=== PATIENT | female | born 1980 | race Caucasian/White ===

== ENCOUNTER 2017-02-09 10:19 | Emergency (ER) | payer MEDICAID ==
[~2017-02-09] VITALS: Ht 152.4 cm; Wt 66.0 kg
[2017-02-09 10:21] VITALS: Ht 152.4 cm; Wt 66.0 kg
[2017-02-09] MEDS ORDERED: ACETAMINOPHEN 500 MG TAB PO STA (10:59)
[2017-02-09] MEDS ORDERED: KETOROLAC 30 MG INJ IV STA (10:59)
--- NOTE | 2017-02-09 11:21 | ERD ---
ER Documentation Chief Complaint Date/Time DATE: 02/09/17 TIME: 11:18 Chief Complaint LEFT BREAST SINCE YESTERDAY HPI This a 36-year-old female who presents to the emergency department today complaining of left breast pain and swelling that started yesterday. States that she started with a fever last night and also has some chills and a headache. States she is breast-feeding and is starting to decrease the amount she is breast-feeding and is only breast-feeding 1 or 2 times a day. States she took some medicine last night for her fever but she is unsure of the name. denies any vomiting, diarrhea, blurred vision. ROS All systems reviewed and are negative except as per history of present illness. Medications Home Meds Active Scripts Ibuprofen* (Motrin*) 600 Mg Tab, 600 MG PO Q6, #30 TAB Prov:YRN VINCENT PA-C 02/09/17 Acetaminophen* (Tylophen*) 500 Mg Capsule, 1 CAP PO Q6H Y for PAIN AND OR ELEVATED TEMP, #30 CAP Prov:YRN VINCENT PA-C 02/09/17 Cephalexin* (Keflex*) 500 Mg Capsule, 500 MG PO QID for 7 Days, CAP Prov:YRN VINCENTC 02/09/17 Hydrocodone/Acetaminophen ([place] 5-325 Tablet) 1 Each Tablet, 1 TAB PO Q6H Y for PAIN, #10 TAB Prov:YRN VINCENTC 02/09/17 Allergies Allergies: Coded Allergies: No Known Drug Allergy (Verified Allergy, Unknown, 02/22/07) Physical Exam Vitals Vital Signs Date Time Temp Pulse Resp B/P Pulse Ox O2 Delivery O2 Flow Rate FiO2 02/09/17 10:21 101.4 122 18 104/60 98 Physical Exam Const: No acute distress Head: Atraumatic Eyes: Normal Conjunctiva. PERRLA. EOM intact per ENT: Normal External Ears, Nose and Mouth. Neck: Full range of motion..~ No meningismus. Resp: Clear to auscultation bilaterally Cardio: Regular rate and rhythm, no murmurs : Left breast tenderness with no purulent drainage. Diffusely tender to palpation no erythema or warmth. Skin: No petechiae or rashes Back: No midline or flank tenderness Ext: No cyanosis, or edema Neur: Awake and alert. Cranial nerves II through XII intact. No gait ataxia. Psych: Normal Mood and Affect Results 24 hrs Current Medications Medications (Trade) Dose Ordered Sig/Shalini Route PRN Reason Start Time Stop Time Status Last Admin Dose Admin Ketorolac Tromethamine (Toradol) 30 mg ONCE STAT IV 02/09/17 10:59 02/09/17 11:02 DC 02/09/17 11:18 Acetaminophen (Tylenol Tab) 500 mg ONCE STAT PO 02/09/17 10:59 02/09/17 11:02 DC 02/09/17 11:18 Cephalexin (Keflex) 500 mg ONCE ONCE PO 02/09/17 13:30 02/09/17 13:31 DC 02/09/17 13:36 DIAGNOSTIC IMAGING REPORT Patient: DENIA HAMILTON : 1980 Age: 36 Sex: F MR #: [id number] DOS: 02/09/17 0000 Ordering MD: YRN VINCENT PA-C Location: [facility] Room/Bed: PROCEDURE: Left breast ultrasound. CLINICAL INDICATION: Left breast pain and tenderness, fibrocystic disease of breast TECHNIQUE: Left whole, four-quadrant, and retroareolar, breast and axillary sonography was performed. COMPARISON: None FINDINGS: No solid or suspicious masses. No areas of architectural distortion. No malignant adenopathy. IMPRESSION: No sonographic evidence of malignancy. ACR BIRADS 1: NEGATIVE. RPTAT: AA .Reema Sanchez MD, MD Date Time Electronically viewed and signed by .Reema Sanchez MD, MD on 02/09/2017 12:02 .F/ CC: YRN VINCENT PA-C Procedures/MDM This 36-year-old female who presents emergency department today complaining of breast pain and swelling and headache and fever started yesterday. I did obtain a breast ultrasound Patient had a fever of 101.4 here in the emergency department. She is tachycardic. Breast ultrasound shows no solid or suspicious masses. There is no areas of architectural distortion. No malignant adenopathy. There is no sonographic evidence of malignancy. Patient symptoms at this time is consistent with breast pain and fever likely related to mastitis as patient is currently breast-feeding. The remaining of her physical exam is otherwise benign. Patient has no focal neurologic deficits. She has full active range of motion of her neck. Low suspicion for meningitis, acute hemorrhage, mass, abscess. Do not feel that she requires further workup or imaging at this time. Patient was given IV fluids, Tylenol and Toradol here in the emergency department and reported feeling better. Fever improved. Patient was also given 1 dose of Keflex here in the emergency department. She is given a prescription for Tylenol, Motrin, [place] and Keflex for home. Discussed the patient with Dr. Ontiveros and he is in agreement with the plan Departure Diagnosis: Primary Impression: Breast pain Additional Impression: Fever Fever type: unspecified Qualified Code: R50.9 - Fever, unspecified fever cause Condition: Fair YRN VINCENT PA-C Feb 09, 2017 11:20
--- NOTE | 2017-02-09 12:02 | RADRPT ---
PROCEDURE: Left breast ultrasound. CLINICAL INDICATION: Left breast pain and tenderness, fibrocystic disease of breast TECHNIQUE: Left whole, four-quadrant, and retroareolar, breast and axillary sonography was perform ed. COMPARISON: None FINDINGS: No solid or suspicious masses. No areas of architectural distortion. No malignant adenopathy. IMPRESSION: No sonographic evidence of malignancy. ACR BIRADS 1: NEGATIVE. RPTAT: AA .Reema Sanchez MD, MD Date Time Electronically viewed and signed by .Reema Sanchez MD, MD on 02/09/2017 12:02 .F/
[2017-02-09] MEDS ORDERED: HYDR-906 PO (13:28)
[2017-02-09] MEDS ORDERED: CEPH-443 PO (13:29)
[2017-02-09] MEDS ORDERED: IBUP-1542 PO (13:29)
[2017-02-09] MEDS ORDERED: ACET500C5 PO (13:29)
[2017-02-09] MEDS ORDERED: CEPHALEXIN 500 MG CAP PO ONE (13:30)
[2017-02-09 13:45] VITALS: BP 105/57; PULSE 101; RESP 18; TEMP 98.4
== END 2017-02-09 13:45 | disposition home or self-care (01) ==
LOC: FTE 10:19
DX: N64.4 Mastodynia (principal); R50.9 Fever, unspecified
CPT/HCPCS: 76642; J1885; Z7610; 96374